=== PATIENT | male | born 1985 | race Caucasian/White ===

== ENCOUNTER 2020-01-06 10:54 | Emergency (ER) | payer OTHER, SELFPAY ==
[2020-01-06 10:56] VITALS: BP 150/100; PULSE 82; RESP 17; TEMP 36.5; O2SAT 100; BMI 29.9
--- NOTE | 2020-01-06 11:07 | EKG12_ITS ---
Test Reason : Blood Pressure : / mmHG Vent. Rate : 075 BPM Atrial Rate : 075 BPM P-R Int : 144 ms QRS Dur : 094 ms QT Int : 376 ms P-R-T Axes : 064 008 035 degrees QTc Int : 419 ms Normal sinus rhythm Normal ECG Confirmed by STEFANIA DOMÍNGUEZ, LATOYA ([id number]), scientific publications editor REX FARR ([id number]) on 01/07/2020 10:51:31 AM Referred By: RU Confirmed By:LATOYA AGUIAR MD
--- NOTE | 2020-01-06 11:09 | ED.VISSUMM ---
- ER Visit Summary Date of Service: 01/06/20 Chief Complaint: [Dizziness] History of Present Illness: The patient is a 34 M [presents to the emergency department complaint of feeling dizzy since yesterday. Patient states that while preparing for surgery and scrubbing he started feeling lightheaded and felt like things were kind of moving side to side. Symptoms continued throughout the day and felt presyncopal at times. He did not actually pass out. He denied nausea or vomiting or diaphoresis. He is never had symptoms like this before. Today he did feel better however while in surgery again he had the episodes of feeling lightheaded. He denies any chest pain or shortness of breath. He did check his blood pressure yesterday and it was elevated to 150 systolic. Patient has no medical history and no history of hypertension otherwise. He denies significant headaches. He has had no falls or head injuries. No history of vertigo.] Physical Examination: [HEENT-PERRLA, EOMI. Cranial nerves II through XII grossly intact. TMs clear. Mucous membranes moist. No adenopathy. Cardiovascular-regular rate and rhythm without murmur or ectopy Lungs-clear to auscultation, chest wall stable without crepitus or subcu emphysema Abdomen-normoactive bowel sounds, soft, nontender, no rebound or rigidity, no peritoneal signs. Neuro [id number] and heel wick testing within normal limits, negative Romberg, negative for drift, fundi benign. Hallpike maneuver performed and patient was symptomatic with head turn to the right but I did not appreciate any significant nystagmus. Extremities-intact ?4, normal range of motion, normal pulses, atraumatic] Test Results: [EKG obtained on arrival showed a sinus rhythm with a ventricular rate of 75 bpm with no acute segment changes. CBC with differential is normal. Chemistries normal. Troponin less than 0.015. Orthostatic vital signs were negative.] Emergency Department Course and Treatment: [ IV established. Patient was given normal saline. Patient was given Antivert 25 mg p.o. and he did feel significantly improved after treatment.] Treatment Plan: [We will be given a prescription for Antivert. Patient advised to push fluids. Patient to follow-up with primary care physician media production support manager for no doc within the next 3 to 5 days.] Disposition: [Discharged home in stable condition] Impression: [Dizziness/BPV] This note was generated with [employer] dictation software. It may contain incorrect words, spelling, and punctuation that were not noted in review of the chart prior to signing ED Disposition - Plan for ED Patient: Referrals: NOT,DEFINED [NON-STAFF] -
[2020-01-06] MEDS: 0.9% Normal Saline 1,000 ML 1000 ML IV (11:30)
[2020-01-06 11:33] LABS: Absolute Lymphocyte Count 1.29 X10^3/uL (0.83-4.51); Absolute Neutrophil Count 2.9 X10^3/uL (2.0-7.7); Basophil# 0.04 X10^3/uL; Basophil% 0.8 % (0-1); Eosinophil# 0.07 X10^3/uL; Eosinophils% 1.5 % (0-5); Hematocrit 42.9 % (40-54); Hemoglobin 14.6 g/dL (13.0-16.5); Lymphocyte # 1.29 X10^3/ul (4.0); Lymphocyte % 27.3 % (19-41); Mean Corpuscular Hgb 28.9 pg (27.0-32.0); Mean Platelet Vol. 10.6 fl (6.2-12.0); Monocyte# 0.37 X10^3/uL; Monocyte% 7.8 % (0-10); NRBC Flagged by Analyzer 0 % (0-5); Neutrophil # 2.93 X10^3/uL (2.7-7.7); Neutrophil % 62.2 % (47-70); Platelet Count 209 K/mm3 (150-450); RBC Distribution Width CV 12.2 % (11.6-14.6); RBC Distribution Width SD 37.3 fl (35.1-43.9); Red Blood Count 5.05 M/mm3 (4.6-6.2); White Blood Count 4.7 K/mm3 (4.4-11.0)
[2020-01-06] MEDS: Meclizine HCl 25 MG Tablet PO (11:41)
[2020-01-06 11:42] VITALS: BP 105/68; BP 116/67; BP 121/65; PULSE 72; PULSE 79; PULSE 92
[2020-01-06 11:50] LABS: Anion Gap 6 (5-15); BUN 11 mg/dL (7-18); BUN/Creat Ratio 10.8 RATIO (10-20); Calcium,Total 9.3 mg/dL (8.5-10.1); Chloride 106 mmol/L (98-107); Creatinine, Serum 1.02 mg/dL (0.70-1.30); EST Glomerular Filtration Rate 89 mL/min (>60); Est Glom Filt Rate - Afr Amer 108 mL/min (>60); Estimated Creatinine Clearance 109.71 ml/min; Glucose 92 mg/dL (74-106); Potassium 3.7 mmol/L (3.5-5.1); Sodium Level 138 mmol/L (136-145)
--- NOTE | 2020-01-06 12:13 | DCINST.ED_ITS ---
ED Disposition - Plan for ED Patient: Instructions: ED BPV Vertigo Prescriptions: Meclizine HCl [Antivert] 25 mg PO TID PRN PRN #20 tab PRN Reason: Dizziness [id number] Referrals: NOT,DEFINED [NON-STAFF] - Cristopher Stayc MD [STAFF PHYSICIAN] - 3-5 Days
--- NOTE | 2020-01-06 12:13 | ED.DEP ---
ED Disposition - Plan for ED Patient: Instructions: ED BPV Vertigo Prescriptions: Meclizine HCl [Antivert] 25 mg PO TID PRN PRN #20 tab PRN Reason: Dizziness [id number] Referrals: NOT,DEFINED [NON-STAFF] - Cristopher Stacy MD [STAFF PHYSICIAN] - 3-5 Days
[2020-01-06 12:43] VITALS: BP 115/63; PULSE 76; RESP 24; O2SAT 100
== END 2020-01-06 12:44 | disposition home or self-care (01) ==
PROVIDERS: Emergency Provider Emergency Medicine
DX: H81.10 Benign paroxysmal vertigo, unspecified ear (principal)
CPT/HCPCS: 80048; 84484; 85025; 93005; 96360; 99285; J7030